=== PATIENT | female | born 1985 | race Hispanic/Latino ===

== ENCOUNTER 2020-04-30 05:30 | Inpatient (IN) | payer OTHER, SELFPAY ==
[2020-04-30] VITALS (274 sets, daily range): BP systolic 104–154; BP diastolic 40–99; PULSE 63–108; TEMP 36.6–37.4; O2SAT 98–100; BMI 37.6
--- NOTE | 2020-04-30 05:30 | LDADM ---
This patient, Ghislaine Head, was admitted to Labor/Delivery/Recovery 102 on 04/30/20 at 05:30. Plans for labor, pain management and were discussed with patient. Patient/family oriented to hospital policies and general routines including ID bracelet, bed and alarms, visiting hours, pain management, procedures, bathroom and other care routines, personal items, smoking policy, room service/diet and guest tray routines, security routines, and visiting hours. Patient/Family are encouraged to report perceived risks to care and to ask questions if they do not understand what they are told or what they should do. See OBIX for further documentation.
[2020-04-30 06:53] LABS: Alanine Aminotransferase 12 U/L (4-35); Albumin Level 3.5 g/dL (3.5-5.1); Alkaline Phosphatase 152 U/L (38-126); Aspartate Amino Transferase 27 U/L (14-36); Bilirubin,Total 0.2 mg/dL (0.2-1.3); Blood Urea Nitrogen 8 mg/dL (7-17); Calcium 9.7 mg/dL (8.4-10.2); Carbon Dioxide 20 mmol/L (22-30); Chloride 108 mmol/L (98-107); Estimated Glomerular Filt Rate > 60; Glucose 118 mg/dL (65-105); Potassium 3.6 mmol/L (3.4-5.0); Sodium 134 mmol/L (137-145); Uric Acid 3.7 mg/dL (2.5-7.5)
[2020-04-30 07:05] LABS: Basophils Absolute Auto 0.1 K/mm3 (0.0-0.1); Basophils Percent Auto 0.5 % (0.2-1.2); Eosinophils Absolute Auto 0.1 K/mm3 (0-0.3); Eosinophils Percent Auto 1.1 % (0-4.4); Hematocrit 30.9 % (37.0-47.0); Hemoglobin 10.2 g/dL (12.0-15.0); Immature Granulocyte Absolute 0.13 K/mm3 (0.00-0.031); Immature Granulocyte Percent A 1.3 % (0-0.5); Lymphocytes Absolute Auto 1.97 K/mm3 (0.9-3.2); Lymphocytes Percent Auto 19.7 % (18.3-44.2); Mean Corpuscular Volume 84.9 fl (80-100); Mean Platelet Volume 11.8 fl (7.4-10.4); Monocytes Absolute Auto 0.9 K/mm3 (0.1-0.6); Monocytes Percent Auto 8.8 % (2.6-8.5); Neutrophils Absolute Auto 6.9 K/mm3 (1.3-6.7); Neutrophils Percent Auto 68.6 % (45.5-73.1); Nucleated Red Blood Cells Perc 0.2 % (0.0-0.2); Platelet Count Result 237 k/mm3 (150-375); Red Blood Count 3.64 M/mm3 (4.2-5.4); Red Cell Distribution Width 15.8 % (11.5-14.5)
[2020-04-30] MEDS: LACTATED RINGERS 1,000 ML 125 ML IV CONT ×3 (07:26→13:16)
[2020-04-30] MEDS: OXYTOCIN 30 UNITS/NS 500 ML 30 UNITS/500 ML BAG IV CONT (07:28)
--- NOTE | 2020-04-30 07:38 | WPDOBADMIT ---
Obstetrics - Admit Note Admission Note: 35 y/o with history of vaginal x 1 and x 1. Pt desires . Induction scheduled by Dr Varma but will be followed by Nimesh Woodson CNM. Cervix 2/thick/posterior AROM moderate amount of flear odorless fluid Cervix very posterior. Unable to place IUPC at this time. Epidural when needed Anticipate record reviewed. No pertinent additions to the history and/or any subsequent changes in the physical findings that are not consistent with the expected course of the were found. Additions to the history and/or subsequent changes in the physical findings follow. None.
--- NOTE | 2020-04-30 08:52 | WPDANESEPPF ---
Anes - Initial Pre Proc Eval Date/Time: 04/30/20 08:52 Surgeon: Montserrat Aguilar MD Pre Op Diagnosis: Induction of Labor Patient Data Age: 35 Gender: F Height: Weight: Last Vital Signs Pulse 91 04/30/20 08:51 BP 131/73 04/30/20 08:51 Pulse Ox 99 04/30/20 08:47 Allergies Allergy/AdvReac Type Severity Reaction Status Date / Time Penicillins Allergy Rash Verified 04/30/20 07:24 Laboratory Tests 04/30/20 04/30/20 04/30/20 06:29 06:29 06:29 WBC 10.0 K/mm3 K/mm3 (4.5-10.0) RBC 3.64 M/mm3 L M/mm3 (4.2-5.4) Hgb 10.2 g/dL L g/dL (12.0-15.0) Hct 30.9 % L % (37.0-47.0) MCV 84.9 fl fl (80-100) MCH 28.0 pg pg (26-34) MCHC 33.0 g/dl g/dl (32-36) RDW 15.8 % H % (11.5-14.5) Plt Count 237 k/mm3 k/mm3 (150-375) MPV 11.8 fl H fl (7.4-10.4) Immature Gran % (Auto) 1.3 % H % (0-0.5) Neut % (Auto) 68.6 % % (45.5-73.1) Lymph % (Auto) 19.7 % % (18.3-44.2) [place] % (Auto) 8.8 % H % (2.6-8.5) Eos % (Auto) 1.1 % % (0-4.4) Baso % (Auto) 0.5 % % (0.2-1.2) Lymph # (Auto) 1.97 K/mm3 K/mm3 (0.9-3.2) [place] # (Auto) 0.9 K/mm3 H K/mm3 (0.1-0.6) Eos # (Auto) 0.1 K/mm3 K/mm3 (0-0.3) Baso # (Auto) 0.1 K/mm3 K/mm3 (0.0-0.1) Abs Immat Gran (auto) 0.13 K/mm3 H K/mm3 (0.00-0.031) Absolute Neuts (auto) 6.9 K/mm3 H K/mm3 (1.3-6.7) Absolute Nucleated RBC 0.0 K/mm3 K/mm3 (0.0-0.012) Nucleated RBC % 0.2 % % (0.0-0.2) Sodium Potassium Chloride Carbon Dioxide BUN Creatinine Estim Creat Clear Calc Estimated GFR Glucose Uric Acid Calcium Total Bilirubin AST ALT Alkaline Phosphatase Total Protein Albumin RPR Pending Blood Type O Positive Antibody Screen Negative 04/30/20 06:29 WBC RBC Hgb Hct MCV MCH MCHC RDW Plt Count MPV Immature Gran % (Auto) Neut % (Auto) Lymph % (Auto) [place] % (Auto) Eos % (Auto) Baso % (Auto) Lymph # (Auto) [place] # (Auto) Eos # (Auto) Baso # (Auto) Abs Immat Gran (auto) Absolute Neuts (auto) Absolute Nucleated RBC Nucleated RBC % Sodium 134 mmol/L L mmol/L (137-145) Potassium 3.6 mmol/L mmol/L (3.4-5.0) Chloride 108 mmol/L H mmol/L (98-107) Carbon Dioxide 20 mmol/L L mmol/L (22-30) BUN 8 mg/dL mg/dL (7-17) Creatinine 0.60 mg/dL L mg/dL (0.7-1.0) Estim Creat Clear Calc Not Reportable Estimated GFR > 60 (59 - ) Glucose 118 mg/dL H mg/dL (65-105) Uric Acid 3.7 mg/dL mg/dL (2.5-7.5) Calcium 9.7 mg/dL mg/dL (8.4-10.2) Total Bilirubin 0.2 mg/dL mg/dL (0.2-1.3) AST 27 U/L U/L (14-36) ALT 12 U/L U/L (4-35) Alkaline Phosphatase 152 U/L H U/L (38-126) Total Protein 7.0 g/dL g/dL (6.3-8.2) Albumin 3.5 g/dL g/dL (3.5-5.1) RPR Blood Type Antibody Screen Patient hx anesthesia problems: none Family hx anesthesia problems: none PMFSH Social History Social History Smoking status: Never smoker Substance use: never Gender identity (if verbalized by the patient): Female Spiritual care concerns: No Anes - Eval Final PreProcedure Day of Procedure 04/30/20 08:52 Patient weight: obese ASA classification: II Emergent: no Anesthetic plan: proceed Anesthesia type and monitoring: regional epidural and standard monitoring Other findings: communicated through road inspector I
[2020-04-30 10:39] LABS: Glucose Point of Care 84 (65-105)
[2020-04-30 17:50] LABS: Glucose Point of Care 73 (65-105)
[2020-04-30 17:50] LABS: Glucose Point of Care 77 (65-105)
[2020-04-30 20:27] LABS: Glucose Point of Care 70 (65-105)
[2020-04-30] MEDS: ONDANSETRON INJ 4 MG/2 ML VIAL IV PUSH (22:50)
--- NOTE | 2020-04-30 22:58 | PM.OBPNLAB ---
Pain Control Date/time seen: 04/30/20 22:58 Pain control: tolerating well and epidural Pelvic Exam Dilation (cm): 7 Effacement (%): 80 station: -2 Amniotic membrane status: Ruptured Assessment and Plan Comments: pt has not had cervical change in four hours, pt declines section at this time will proceed with pitocin and peanut ball, Dr. Aguilar notified, Pt is currently afebrile and FHR category 1
[2020-04-30 23:20] LABS: Glucose Point of Care 78 (65-105)
[2020-05-01] VITALS (164 sets, daily range): BP systolic 82–163; BP diastolic 42–97; PULSE 26–110; RESP 16–18; TEMP 36.5–37.6; O2SAT 83–100
[2020-05-01] MEDS: LACTATED RINGERS 1,000 ML 125 ML IV CONT (01:09)
[2020-05-01 01:20] LABS: Glucose Point of Care 85 (65-105)
[2020-05-01 03:39] LABS: Glucose Point of Care 90 (65-105)
--- NOTE | 2020-05-01 06:40 | PM.OBPNLAB ---
Pain Control Date/time seen: 05/01/20 06:40 Pelvic Exam Dilation (cm): 7 Effacement (%): 80 station: -2 Amniotic membrane status: Ruptured Assessment and Plan Comments: arrest of cervical dilation, failure of fetus to descend, hx of prior section, spoke with pt and and will proceed with repeat section. Dr. Aguilar aware
[2020-05-01 06:45] LABS: Glucose Point of Care 125 (65-105)
[2020-05-01 06:46] LABS: Glucose Point of Care 127 (65-105)
--- NOTE | 2020-05-01 07:24 | WPDANESEFPP ---
Anes - Eval Final PreProcedure Day of Procedure 05/01/20 07:24 Patient weight: obese Heart: regular rate and rhythm Lungs: clear to auscultation Neurological: other (alert) ASA classification: II Emergent: no Anesthetic plan: proceed Anesthesia type and monitoring: regional epidural and standard monitoring Other findings: use existing epid for anes spinal if necessary Informed Consent: The patient's anesthetic plan and its attendant risks and benefits were discussed with the patient/family/POA. Questions were solicited and answers provided to the satisfaction of the patient/family/POA.
[2020-05-01 07:47] LABS: Rapid Plasma Reagin Non-Reactive (NonReactive)
--- NOTE | 2020-05-01 08:35 | P.OP_ITS ---
Procedure Note - Detailed Date of procedure: 05/01/20 Pre-op diagnosis: Induction of Labor TOLAC, Failure To Progress, Post-op diagnosis: same (Malposition of the Head) Procedure performed: Repeat Low Transverse Delivery Description of procedure: The patient was taken the operating room. She was prepped and draped in the dorsal supine position with leftward tilt after induction of spinal anesthetic. When anesthesia was found to be adequate a low- transverse skin incision was made and carried down to the level the fascia with the knife. The fascial incision was made at the midline with a scalpel. The fascial incision was extended laterally with Brown scissors. The fascia was tented upward superior and inferior with Carson clamps. The rectus muscles were dissected off bluntly. The rectus muscles at the midline. The preperitoneal fat was dissected bluntly at the superior aspect of the separate the rectus muscles. The peritoneal cavity was entered bluntly in the same area. The peritoneal incision was extended superior and inferior with good visualization of bladder. Bladder blade was inserted. A low-transverse incision was made on the uterus with the scalpel. It was carried down the level of the amniotic cavity with a knife. The amniotic cavity bluntly. The uterine incision was made laterally with blunt traction. The was delivered. The cord was clamped and cut. The infant was handed off to waiting pediatric staff. Cord bloods were obtained. The placenta was removed manually. The uterus was exteriorized. Uterus cleared of all clots and debris. Uterus closed in 0 Vicryl in a running locked fashion. An imbricating layer of 0 Vicryl was also placed on the to bolster the closure. The uterus was returned to the abdomen. The gutters were cleared of all clots and debris. The fascia was closed 0 Vicryl in a running fashion. Subcutaneous tissue was irrigated and bleeding areas were cauterized. The skin was closed with subcuticular absorbable sonali. The incision was covered with derma antunez. The patient tolerated the procedure well. She was taken recovery room stable condition. Sponge, lap, needle counts were correct x2. Anesthesia: spinal Surgeon: Montserrat Aguilar MD Estimated blood loss (mL): 500 Drains: No Packing: No Pathology: none sent Complications: No immediate complications Condition: stable Disposition: floor Findings: Normal maternal anatomy. Average size infant with normal Apgars. ROP Position of the Head
[2020-05-01] MEDS: KETOROLAC 30 MG/ML VIAL (*BKC) IV PUSH ×3 (10:00→22:50)
[2020-05-01] MEDS: OXYTOCIN 30 UNITS/NS 500 ML 30 UNITS/500 ML BAG 125 UNITS IV CONT (11:20)
--- NOTE | 2020-05-01 11:44 | SUR.PHASEI ---
PATIENT INTO OB RECOVERY VIA STRETCHER AND MONITORS APPLIED. REPORT FROM Monroe RUBY CRNA. ASSESSMENT STABLE AND NO PAIN AND UNABLE TO MOVE LOWER EXTREMITIES WITH SCD'S CONTINUED. IVF INFUSING WELL. INCISION OPEN TO AIR WITH NO DRAINAGE. GIVEN TORADOL WHEN PAIN WITH FUNDAL CHECKS STARTED AROUND 10 AND BABY BREAST FEEDING VERY WELL. ASSESSMENT STABLE . TRANSPORT TO 291 VIA STRETCHER AND REPORT TO Valdemar SPENCER RN
--- NOTE | 2020-05-01 14:05 | PC.NURSE ---
RN requested assist with latching . Mother is Haitian speaking interpretation line used. Mother is attempting to breast with incorrect positioning/alignment. Reviewed positioning/alignment in football, holding breast in C hold and guided asymmetrical latch on. Discussed rational for each. Several attempts before was able to latch correctly. Infant nursed eagerly, with steady draws and frequent swallowing noted. Reviewed signs of a correct latch, effective nursing and suck swallow ratio. was able to maintain latch without discomfort to mother. Nipple care reviewed. Reviewed infant feeding cues, frequencies, duration of feedings, feeding elimination flow sheet, and signs of adequate intake. Instructed mother to call out for RN assistance if she is unable to latch infant for feeding or she has discomfort with nursing. Instructed feeding should be initiated three hours from start of last feeding or if feeding cues are noted before. Mother voiced understanding of information shared.
[2020-05-01] MEDS: DEXTROSE 5%/0.45% SOD CHL 1,000 ML 125 ML IV CONT (15:42)
[2020-05-02 04:30] VITALS: BP 116/56; PULSE 94; RESP 16; TEMP 36.8; O2SAT 98
[2020-05-02] MEDS: IBUPROFEN 600 MG TABLET PO ×3 (04:41→20:45)
[2020-05-02 05:02] LABS: Hematocrit 25.1 % (37.0-47.0); Hemoglobin 8.2 g/dL (12.0-15.0); Mean Corpuscular HGB Conc 32.7 g/dl (32-36); Mean Corpuscular Hemoglobin 28.1 pg (26-34); Mean Platelet Volume 11.6 fl (7.4-10.4); Platelet Count Result 178 k/mm3 (150-375); Red Blood Count 2.92 M/mm3 (4.2-5.4); Red Cell Distribution Width 15.9 % (11.5-14.5); White Blood Count 14.8 K/mm3 (4.5-10.0)
[2020-05-02 05:37] LABS: Band Neutrophils Percent 7 % (0-6); Lymphocytes Absolute Manual 1.77 K/mm3 (1.1-4.5); Monocytes Absolute Manual 1.03 K/mm3 (0.1-0.90); Monocytes Percent Manual 7 % (3-9); Neutrophils Absolute Manual 11.98 K/mm3 (1.7-7.2); Neutrophils Percent Manual 74 % (46-73); Platelet Estimate Adequate (Adequate); Total Cells Counted 100
[2020-05-02 07:40] VITALS: BP 113/58; PULSE 81; RESP 18; TEMP 37.3; O2SAT 98
--- NOTE | 2020-05-02 08:30 | P.PNOB_ITS ---
OB - PN: Subj Subjective Date/time seen: 05/02/20 08:30 OB - PN: Obj Data Labs CBC & Chem 7: 05/02/20 04:46 04/30/20 06:29 Labs: Laboratory Results - last 24 hr 05/02/20 04:46 WBC 14.8 H RBC 2.92 L Hgb 8.2 L Hct 25.1 L MCV 86.0 MCH 28.1 MCHC 32.7 RDW 15.9 H Plt Count 178 MPV 11.6 H Immature Gran % (Auto) Not Reportable Neut % (Auto) Not Reportable Lymph % (Auto) Not Reportable [place] % (Auto) Not Reportable Eos % (Auto) Not Reportable Baso % (Auto) Not Reportable Lymph # (Auto) Not Reportable [place] # (Auto) Not Reportable Eos # (Auto) Not Reportable Baso # (Auto) Not Reportable Abs Immat Gran (auto) Not Reportable Absolute Neuts (auto) Not Reportable Absolute Nucleated RBC Not Reportable Total Counted 100 Neutrophils % (Manual) 74 H Band Neutrophils % 7 H Lymphocytes % (Manual) 12.0 L Monocytes % (Manual) 7 Nucleated RBC % Not Reportable Abs Neuts (Manual) 11.98 H Abs Lymphs (Manual) 1.77 Abs Monocytes (Manual) 1.03 H Platelet Estimate Adequate OB - PN A/P Time Spent With Patient Time: Total time spent is greater than 50% in coordination of care (as documented) at patient's floor/unit and/or counseling patient: Review of Systems Review of Systems: All systems reviewed & are unremarkable except as noted in HPI and below Exam Narrative: Exam Narrative: Fundus firm and flow controlled. Lower ext nl. Const: General: comfortable Chest: Breast/axilla inspection: normal inspection of the breasts Resp: Effort & Inspection: normal respiratory effort Auscultation: clear to auscultation bilaterally GI: Auscultation: normal bowel sounds Psych: Appearance: grossly normal Affect: normal affect Attitude: cooperative Judgement: Good judgement present (Psych)
[2020-05-02] MEDS: SIMETHICONE 80 MG TAB.CHEW PO (08:49)
[2020-05-02] MEDS: POLYSACCHARIDE IRON COMPLEX 150 MG CAPSULE PO ×2 (08:49→16:31)
[2020-05-02] MEDS: MULTIVIT/MIN/PREN/FOL AC/IRON TABLET 1 TAB PO (08:49)
[2020-05-02] MEDS: DOCUSATE SODIUM 100 MG CAPSULE PO ×2 (08:49→16:31)
--- NOTE | 2020-05-02 09:47 | WPDANLDPN2 ---
Anes-Prog Note L&D Date/Time: 05/02/20 09:47 Comfortable throughout: section Neuraxial method: epidural Epidural/Spinal procedure site: clean & non-tender Neuro status: Neuro function grossly intact. Cardiovascular status: normal Respiratory status: normal Airway patency: baseline Mental status: baseline Post-Op hydration status: normal Vital Signs: Last Vital Signs Temp 37.3 C 05/02/20 07:40 Pulse 81 05/02/20 07:40 Resp 18 05/02/20 07:40 BP 113/58 L 05/02/20 07:40 Pulse Ox 98 05/02/20 07:40 I/O: Intake & Output 05/01/20 05/02/20 05/02/20 23:59 07:59 15:59 Intake Total 500 240 Output Total 1150 1100 Balance -650 -860 Post-procedural complaints: none Patient feedback: Patient satisfied with anesthetic care.
--- NOTE | 2020-05-02 09:47 | WPDANLDNPN2 ---
Anes-Prog Note L&D-Neuraxial Date/Time: 05/02/20 09:47 Neuraxial medications: epidural PF morphine Opiod-related complaints: none Patient feedback: Patient satisfied with post-operative pain management.
--- NOTE | 2020-05-02 13:30 | PC.NURSE ---
Mother is able to put to breast independently, eagerly nurses with long draws and freq swallowing noted. Mother states infant is not satisfied with she will supplement as needed. Suggested mother put infant to breast first each feeding for stimulation of milk supply then supplement. Mother agrees.
[2020-05-02 20:33] VITALS: BP 113/55; PULSE 72; RESP 18; TEMP 36.6
[2020-05-03] MEDS: IBUPROFEN 600 MG TABLET PO ×2 (04:45→12:10)
--- NOTE | 2020-05-03 07:51 | PM.OBPNVD ---
OB - PN: Subj Subjective Date/time seen: 05/03/20 07:51 Patient comments: no complaints and pain well controlled baby status: doing well OB - PN: Obj Data Labs CBC & Chem 7: 05/02/20 04:46 04/30/20 06:29 OB - PN A/P Plan Plan: routine care and discharge home (Follow up 1 week.) Time Spent With Patient Time: Total time spent is greater than 50% in coordination of care (as documented) at patient's floor/unit and/or counseling patient: Time with patient: less than 15 minutes Review of Systems Review of Systems: All systems reviewed & are unremarkable except as noted in HPI and below Exam Narrative: Exam Narrative: Fundus firm and vaginal flow controlled. Trace edema lower ext. No redness, warmth, or tenderness. Negative homans. Const: General: comfortable Chest: Breast/axilla inspection: normal inspection of the breasts Resp: Effort & Inspection: normal respiratory effort Cardio: Rate: regular rate GI: Auscultation: normal bowel sounds Psych: Appearance: grossly normal Affect: normal affect Attitude: cooperative Judgement: Good judgement present (Psych)
--- NOTE | 2020-05-03 08:11 | PM.OBDSVD ---
DS: Discharge Diagnosis Discharge Diagnosis (1) delivery delivered: Code(s): O82 - Encounter for delivery without indication Status: Acute OB - DS: Summary OB Procedures : None OB Procedures Intrapartum: OB Procedures: : None Peripartum Data Infant Delivery Method: Section Procedures: Procedures Operation Date: 05/01/20 07:30 Actual Procedures Side Surgeon p Section Montserrat Aguilar MD Status at Discharge Functional status at discharge: independent ambulation Time Spent with Patient Time attestation: Total time spent providing and/or coordinating discharge services: DS: Data Data Completed and Pending Pending studies at discharge: Pending at discharge 05/01/20 07:59 Surgical [PTH] Routine Discharge Plan Discharge Attending physician on discharge: Montserrat Aguilar Discharging Clinician: Maite Taveras Patient Disposition: Home, Self-Care Activity: no driving and pelvic rest Diet: as tolerated Wound Care Instructions: follow printed instructions Patient Instructions: Antibiotic Form Stand Alone Forms: General Discharge Information Follow-up/Referrals: Montserrat Aguilar MD [Physician] - Discharge Medications: New hydrocodone-acetaminophen 5-325 mg Tablet 1 tab PO Q3H PRN (Reason: Moderate Pain (4-6)) Qty: 20 RF: 0 polysaccharide iron complex 150 mg iron Capsule 150 mg PO BIDWM Qty: 60 RF: 0 ibuprofen 600 mg Tablet 600 mg PO Q6H PRN (Reason: Cramping) Qty: 20 RF: 0 Continued PNV cmb#95-ferrous fumarate-FA [] 28 mg iron- 800 mcg Tablet 1 tablet PO DAILY RF: 0 Date of admission: 04/30/20 05:30 Primary Care Provider: Esme Woodson Admitting Provider: Montserrat Aguilar Attending physician on admission: Montserrat Aguilar
[2020-05-03 08:35] VITALS: BP 116/46; PULSE 72; RESP 18; TEMP 36.6; O2SAT 99
[2020-05-03] MEDS: MULTIVIT/MIN/PREN/FOL AC/IRON TABLET 1 TAB PO (08:44)
[2020-05-03] MEDS: DOCUSATE SODIUM 100 MG CAPSULE PO (08:44)
[2020-05-03] MEDS: POLYSACCHARIDE IRON COMPLEX 150 MG CAPSULE PO (08:44)
--- NOTE | 2020-05-03 09:30 | PC.NURSE ---
Mother is able to independently latch infant with appropriate positioning/alignment. She denies any nipple discomfort, is feeding as required and waking to feed if needed. Infant has had several effective feedings in the past 24 hours, and is currently meeting outcomes for weight, output, jaundice and feeding frequencies. Mother chooses to supplement if infant does not appear to her to be satisfied after . Mother states she feels confident to continue current feeding plan at home. Reviewed transition to breast milk, signs of adequate intake, and engorgement/relief. Instructed to call ICP if intake/output less than required. Reviewed regular medications mother is taking. Information provided per Jessica. Reviewed community resources on the [facility] website and in the Mom/Baby guide. Information on outpatient services provided. Mother has no further questions at this time.
--- NOTE | 2020-05-03 10:14 | PC.NURSE ---
Patient viewed the discharge video Mother & Baby Care, The First Two Weeks . Patient was given the opportunity and encouraged to ask questions. Patient verbalized understanding of information shared and has been given the mother/baby guide for home reference.
--- NOTE | 2020-05-03 12:17 | PC.NURSE ---
Discharge instructions given through stratus translation line.
[2020-05-04 09:39] VITALS: BP 126/65; PULSE 80; RESP 20; TEMP 37; O2SAT 99
--- NOTE | 2020-05-29 07:32 | PM.IMHP ---
H&P: HPI History of Present Illness Chief complaint: Induction of Labor Narrative: Ghislaine Head is a 35 year old female she is a 3 para 2 at term who underwent induction of labor and attempt to . Labor has failed to progress and we have elected to perform repeat delivery. The patient understands the risk. She denies any chest pain or shortness of breath. She denies any nausea, vomiting, fever, chills. Review of Systems Constitutional: Constitutional: Reports no additional constitutional complaints, Denies fatigue, Denies headache(s), Denies lethargy and Denies weakness Eyes: Eyes: Reports no additional eye complaints, Denies blurry vision and Denies photophobia ENT: Reports as per HPI, Denies headache(s) and Denies neck pain Cardiovascular: Cardiovascular: Denies chest pain, Denies diaphoresis, Denies leg edema, Denies palpitations and Denies dyspnea Respiratory: Respiratory: Denies hemoptysis, Denies dyspnea and Denies wheezing Gastrointestinal: Gastrointestinal: Denies abdominal pain, Denies melena, Denies bloating, Denies hematochezia, Denies nausea and Denies vomiting Genitourinary: Genitourinary: Reports no additional female genitourinary complaints Musculoskeletal: Musculoskeletal: Denies joint swelling, Denies neck pain, Denies numbness and Denies stiffness Neurologic: Denies Abnormal speech present, Denies confusion, Denies headache(s), Denies numbness and Denies weakness Psychiatric: Psychiatric: Denies anxiety, Denies confusion, Denies depression, Denies homicidal ideation and Denies suicidal ideation Endocrine: Endocrine: Denies fatigue and Denies palpitations Allergic/Immunologic: Allergic/Immunologic: Denies wheezing [facility] Social History Social History Smoking status: Never smoker Substance use: never Gender identity (if verbalized by the patient): Female Spiritual care concerns: No Meds Home Medications and Allergies Home Medications Medication Instructions Recorded Confirmed Type PNV cmb#95-ferrous fumarate-FA 1 tablet PO DAILY 04/30/20 04/30/20 History [] hydrocodone-acetaminophen 1 tab PO Q3H PRN #20 tablet 05/03/20 Rx ibuprofen 600 mg PO Q6H PRN #20 tablet 05/03/20 Rx polysaccharide iron complex 150 mg PO BIDWM #60 cap 05/03/20 Rx Allergies Allergy/AdvReac Type Severity Reaction Status Date / Time Penicillins Allergy Rash Verified 04/30/20 07:24 Exam Const: General: healthy appearing, comfortable and no acute distress; No confusion Orientation/consciousness: No confusion Eyes: Direct Ophthalmoscopy: No photophobia Resp: Auscultation: clear to auscultation bilaterally, no rales, no rhonchi and no wheezes Cardio: Rate: regular rate Heart sounds: no click, no murmurs and no rubs GI: Inspection: non-distended GI Palp: No abdominal tenderness Auscultation: normal bowel sounds Neuro: General: No confusion Speech: No Abnormal speech present Extrem: General: normal to inspection, no pedal edema and no calf tenderness Assessment and Plan Assessment and plan (1) Failure to progress in labor: Code(s): O62.2 - Other uterine inertia Status: Acute (2) Term : Code(s): Z34.90 - Encounter for supervision of normal , unspecified, unspecified trimester Status: Acute Assessment and Plan: this patient is a 35-year-old multiparous female at term with failure to progress after induction of labor. We have agreed to perform delivery. She understands the risks, benefits, and alternatives. With completed the informed consent process she is rated proceed.
== END 2020-05-03 12:35 | disposition home or self-care (01) | DRG 540 ==
LOC: ANHLDR 05-01 10:16 → ANHOB2 05-01 11:03
PROVIDERS: Admitting Provider Obstetrics & Gynecology; PCP Advanced Practice Midwife; Visit Provider Obstetrics & Gynecology
PROC: 10D00Z1 Extraction of Products of Conception, Low, Open Approach (ICD-10-PCS; CPT 59514; principal; 2020-05-01 07:30)
DX: O34.211 Maternal care for low transverse scar from previous cesarean delivery (principal); Z37.0 Single live birth; Z3A.40 40 weeks gestation of pregnancy; O32.4XX0 Maternal care for high head at term, not applicable or unspecified; O62.0 Primary inadequate contractions; O99.214 Obesity complicating childbirth; E66.9 Obesity, unspecified; O24.429 Gestational diabetes mellitus in childbirth, unspecified control; O41.1230 Chorioamnionitis, third trimester, not applicable or unspecified
CPT/HCPCS: 36415; 80053; 84550; 85025; 86592; 86850; 86900; 86901; 88307; A9270; J1885; J2250; J2274; J2405; J2590; J2795; J3010; J3370; J7120